=== PATIENT | female | born 1950 | race Two or more races ===

== ENCOUNTER 2020-08-25 05:30 | Day surgery (SDC) | payer OTHER ==
[~2020-08-25 05:30] MED LIST: COZAAR25 MG PO; LIPIT PO; VITAMIN D310 MCG/1 M PO
[2020-08-25] MEDS ORDERED: PERCOCET 5-3251 EACH PO (11:25)
== END 2020-08-25 14:50 | disposition home or self-care (01) ==
LOC: CIR.AMB 05:30
PROVIDERS: ATTEND Surgery
DX: D35.1 Benign neoplasm of parathyroid gland (principal); Z20.828 Contact with and (suspected) exposure to other viral communicable diseases